=== PATIENT | female | born 1985 | race Caucasian/White ===

== ENCOUNTER → 2018-02-05 | Outpatient (CLI) | payer OTHER ==
[2018-02-05 16:17] LABS: FREE T4 0.95 NG/DL (0.76-1.46)
[2018-02-06 10:02] LABS: CONTROL LINE HPYORI INT CTR LINE PRESENT; H PYLORI QUALITATIVE IgG NEGATIVE (NEGATIVE)
== END ==
LOC: M LAB 15:15
DX: R10.31 Right lower quadrant pain (principal)
CPT/HCPCS: 84443

== ENCOUNTER → 2019-04-16 | Outpatient (CLI) | payer OTHER ==
[~2019-04-16] MED LIST: MOTR200T44 PO; PRENTAB54 PO
--- NOTE | 2019-04-16 11:52 | REP ---
RIGHT UPPER QUADRANT ULTRASOUND: Real-time sonographic evaluation of the right upper quadrant performed. Gallbladder demonstrates no evidence of intraluminal sludge or calculi, wall thickening, or pericholecystic fluid. There is on intrahepatic or extrahepatic biliary dilatation, common bile duct measuring 4 mm. Liver and pancreas demonstrate homogeneous echotexture with no gross mass. Right kidney demonstrates no hydronephrosis with normal size at 11.6 cm in length. Visualized abdominal aorta is normal in caliber. IMPRESSION: Essentially negative right upper quadrant ultrasound. Electronically Signed by Jose Alejandro Melvin MD 04/16/2019 02:13 P
== END ==
LOC: M RAD 09:12
PROVIDERS: ATTEND Internal Medicine Gastroenterology
DX: R10.13 Epigastric pain (principal)

== ENCOUNTER → 2019-06-12 | Outpatient (CLI) | payer OTHER ==
--- NOTE | 2019-06-12 13:06 | REP ---
HIDA SCAN WITH GALLBLADDER EJECTION FRACTION: Following the intravenous administration of 6.6 mCi of technetium 99m mebrofenin, multiple images of the right upper quadrant are performed every 5 minutes for a period of one hour. The gallbladder is visualized at 15 minutes post injection. 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 At the one hour nate, 8 ounces of Ensure Enlive is ingested and further imaging performed for one hour. There is immediate biliary to bowel transit after ingestion of the Ensure. Gallbladder activity is measured and the gallbladder ejection fraction is 95% which is normal. IMPRESSION: Normal gallbladder ejection fraction of 95%. 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 Electronically Signed by Jose Alejandro Melvin MD 06/12/2019 02:00 P
== END ==
LOC: M RAD 08:05
PROVIDERS: ATTEND Internal Medicine Gastroenterology
DX: R10.13 Epigastric pain (principal)
CPT/HCPCS: 78227; A9537; J2805

== ENCOUNTER → 2023-02-26 | Outpatient (CLI) | payer OTHER | LOC: M PLALAB 13:05 | PROVIDERS: ATTEND Psychiatry & Neurology Neurology | DX: R51.9 Headache, unspecified (principal); R41.3 Other amnesia ==

== ENCOUNTER 2024-03-25 15:58 | Inpatient (IN) | payer OTHER ==
[~2024-03-25] VITALS: Ht 157.5 cm; Wt 65.9 kg
[2024-03-25] MEDS ORDERED: ADDE10CA3 PO (16:37)
[2024-03-25 16:55] LABS: HEMATOCRIT 32.8 % (36.0-47.0); HEMOGLOBIN 10.7 g/dl (12.0-15.5); MEAN CORPUSCULAR HEMOGLOBIN 30.1 pg (27.0-33.0); MEAN CORPUSCULAR HGB CONC 32.6 g/dl (32.0-36.5); MEAN CORPUSCULAR VOLUME 92.4 fl (80.0-96.0); PLATELET COUNT, AUTOMATED 367 10^3/uL (150-450); RED BLOOD COUNT 3.55 10^6/uL (4.00-5.40); WHITE BLOOD COUNT 7.3 10^3/uL (4.0-10.0)
[2024-03-25 17:06] LABS: BARBITURATES URINE NEGATIVE (NEGATIVE); BENZODIAZEPINES URINE NEGATIVE (NEGATIVE); CANNABINOIDS URINE NEGATIVE (NEGATIVE); COCAINE METABOLITE URINE NEGATIVE (NEGATIVE); METHADONE URINE NEGATIVE (NEGATIVE); OPIATES URINE NEGATIVE (NEGATIVE); PHENCYCLIDINE URINE NEGATIVE (NEGATIVE)
[2024-03-25 17:09] LABS: ETHYL ALCOHOL (ETHANOL) 0.036 % (0.000-0.010)
[2024-03-25 17:10] LABS: SALICYLATE LEVEL < 3.0 MG/DL (<30)
[2024-03-25 17:11] LABS: ALBUMIN 3.9 G/DL (3.2-5.2); ALKALINE PHOSPHATASE 50 U/L (46-116); ALT/SGPT 24 U/L (7.0-40); AST/SGOT 14 U/L (<34); BILIRUBIN,DIRECT < 0.1 MG/DL (<0.4); BILIRUBIN,TOTAL 0.2 MG/DL (0.3-1.2); BLOOD UREA NITROGEN 9 MG/DL (9-23); CALCIUM LEVEL 8.6 MG/DL (8.5-10.1); CARBON DIOXIDE LEVEL 23 MMOL/L (20-31); CHLORIDE LEVEL 108 MMOL/L (98-107); CREATININE FOR GFR 0.68 MG/DL (0.55-1.30); GLOMERULAR FILTRATION RATE > 60.0 (>58); GLUCOSE, FASTING 93 MG/DL (60-100); POTASSIUM SERUM 4.4 MMOL/L (3.5-5.1); SODIUM LEVEL 139 MMOL/L (136-145); TOTAL PROTEIN 7.1 G/DL (5.7-8.2)
[2024-03-25 17:13] LABS: THYROID STIMULATING HORMONE 2.638 uIU/ML (0.55-4.78)
[2024-03-25 17:22] LABS: HCG, SERUM QUALITATIVE POSITIVE (NEGATIVE)
[2024-03-25 17:28] LABS: AMPHETAMINES LEVEL URINE POSITIVE (NEGATIVE)
[2024-03-25 20:08] LABS: HCG, SERUM QUANTITATIVE 473.9 MIU/ML (<4.2)
[2024-03-25] MEDS ORDERED: ACETAMINOPHEN TAB 650MG DOSE (2X325MG) PO PRN (22:20)
[2024-03-25] MEDS ORDERED: traZODone 50 MG TAB PO PRN (22:20)
[2024-03-25] MEDS ORDERED: MOM 30ML SUSPENSION UDC PO PRN (22:20)
[2024-03-25] MEDS ORDERED: diphenhydrAMINE 25MG CAP PO PRN (22:20)
[2024-03-25] MEDS ORDERED: MAALOX 30 ML SUSP *UDC PO PRN (22:20)
[2024-03-25 23:26] VITALS: BP 138/60; TEMP 97.3; O2SAT 99
[2024-03-26 06:33] VITALS: BP 94/50; TEMP 97; O2SAT 95
[2024-03-26] MEDS ORDERED: D-3-50003 PO (08:13)
[2024-03-26] MEDS ORDERED: THERTAB52 PO (08:13)
[2024-03-26] MEDS ORDERED: B-1225002 SL (08:13)
[2024-03-26] MEDS ORDERED: ASCO500T PO (08:13)
[2024-03-26] MEDS ORDERED: ADDE10TA PO (08:13)
[2024-03-26] MEDS ORDERED: ADDE1TAB14 PO (08:13)
[2024-03-26] MEDS ORDERED: HYDR-3363 PO (08:14)
[2024-03-26] MEDS ORDERED: HOME MED LIST COMPLETE! XX SCH (08:15)
== END 2024-03-26 15:35 | disposition home or self-care (01) | DRG 755 ==
LOC: M ED 15:58 → M ED INP 22:19 → M PSY 22:59
PROVIDERS: ADMIT Student in an Organized Health Care Education/Training Program; ATTEND Student in an Organized Health Care Education/Training Program
DX: F43.20 Adjustment disorder, unspecified (principal); F32.A Depression, unspecified; F17.210 Nicotine dependence, cigarettes, uncomplicated; F41.9 Anxiety disorder, unspecified; R45.851 Suicidal ideations; D64.9 Anemia, unspecified; F10.90 Alcohol use, unspecified, uncomplicated; F90.9 Attention-deficit hyperactivity disorder, unspecified type; Z79.899 Other long term (current) drug therapy; Z88.6 Allergy status to analgesic agent; Z91.410 Personal history of adult physical and sexual abuse; Z63.79 Other stressful life events affecting family and household

== ENCOUNTER 2025-06-01 14:40 | Emergency (ER) | payer OTHER ==
[~2025-06-01] VITALS: Ht 157.5 cm; Wt 56.3 kg
[~2025-06-01 14:40] MED LIST changes: +ADDE10CA3 PO; +ADDE10TA PO; +ADDE1TAB14 PO; +ASCO500T PO; +B-1225002 SL; +D-3-50003 PO; +HYDR-3363 PO; +THERTAB52 PO
[2025-06-01 14:49] VITALS: TEMP 97.1
[2025-06-01 18:46] VITALS: BP 121/55; O2SAT 98
== END 2025-06-01 19:03 | disposition home or self-care (01) ==
LOC: M ED 14:40
DX: G56.21 Lesion of ulnar nerve, right upper limb (principal); F90.9 Attention-deficit hyperactivity disorder, unspecified type; K21.9 Gastro-esophageal reflux disease without esophagitis; Z88.6 Allergy status to analgesic agent; Z98.84 Bariatric surgery status; Z79.1 Long term (current) use of non-steroidal anti-inflammatories (NSAID); Z79.899 Other long term (current) drug therapy